=== PATIENT | male | born 1960 | race Caucasian/White ===

== ENCOUNTER 2022-08-29 09:15 | Emergency (ER) | payer OTHER ==
[~2022-08-29] VITALS: Ht 188 cm; Wt 88.5 kg
[2022-08-29 10:19] VITALS: BP 143/119
== END 2022-08-29 11:34 | disposition home or self-care (01) ==
LOC: ER 09:15
DX: Z04.89 Encounter for examination and observation for other specified reasons (principal); Z20.822 Contact with and (suspected) exposure to COVID-19
CPT/HCPCS: 99283